=== PATIENT | female | born 1990 | race Caucasian/White ===

== ENCOUNTER 2018-01-16 04:15 | Emergency (ER) | payer MEDICAID ==
[2018-01-16] MEDS ORDERED: NS 1,000 ML IV ONE (04:26)
[2018-01-16] MEDS ORDERED: KETOROLAC 30 MG/1 ML SDV IVP ONE (04:26)
[2018-01-16] MEDS ORDERED: DEXAMETHASONE 10 MG/ML VIAL IVP ONE (04:26)
[2018-01-16] MEDS ORDERED: METOCLOPRAMIDE 10 MG/2 ML VIAL IVP ONE (04:26)
--- NOTE | 2018-01-16 04:29 | EDPHY ---
H & P Stated Complaint: migraine headache since 4 p.m. yeaterday, increased pain @ 1 am Time Seen by Provider: 01/16/18 04:26 HPI/ROS: HPI CHIEF COMPLAINT: "I am having a migraine" HISTORY OF PRESENT ILLNESS: 27-year-old female, suffers from migraine headaches , presents emergency room stating that she is having a migraine. She typically would take migraine medication however she does not have a primary care doctor and does not have any current migraine medications. She states her headache is bifrontal and is very similar to her previous migraine headaches. Describes a throbbing sensation. She also gets ocular migraines. She denies any ocular complaints at this time. Denies chest pain shortness of breath. Denies fever. Denies neck stiffness. Headaches been going on since 4:00 p.m. Yesterday. Gradual onset. Not thunderclap. Not sudden onset. Past Medical History: Migraine headache Past Surgical History: Gallbladder removal Social History: Denies daily use drugs alcohol tobacco. Family History: Noncontributory ROS REVIEW OF SYSTEMS: 10 Systems were reviewed and negative with the exception of the elements mentioned in the history of present illness. Exam Constitutional nontoxic no acute distress triage nursing summary reviewed, vital signs reviewed, awake/alert. Eyes normal conjunctivae and sclera, EOMI, PERRLA. HENT normal inspection, atraumatic, moist mucus membranes, no epistaxis, neck supple/ no meningismus, no raccoon eyes. Respiratory clear to auscultation bilaterally, normal breath sounds, no respiratory distress, no wheezing. Cardiovascular rate normal, regular rhythm, no murmur, no edema, distal pulses normal. Gastrointestinal soft, non-tender, no rebound, no guarding, normal bowel sounds, no distension, no pulsatile mass. Genitourinary no CVA tenderness. Musculoskeletal no midline vertebral tenderness, full range of motion, no calf swelling, no tenderness of extremities, no meningismus, good pulses, neurovascularly intact. Skin pink, warm, & dry, no rash, skin atraumatic. Neurologic normal neurological exam awake, alert and oriented x 3, AAOx3, moves all 4 extremities equally, motor intact, sensory intact, CN II-XII intact , normal cerebellar, normal vision, normal speech. Psychiatric normal mood/affect. Heme/Lymph/Immune no lymphadenopathy. Differential Diagnosis: Includes but is not limited to in a particular order migraine headache, tension headache, cluster headache, intracranial bleed, meningitis Medical Decision Making: Plan for this patient her neurological exam here is unremarkable. She describes her headache is similar to her previous migraine headaches. She did take ibuprofen prior to arrival and earlier in the day without much relief. Her headache she reports is very similar to previous headaches. Re-evaluation: Plan for patient migraine cocktail IV, basic blood work, IV fluids and monitoring. Re-evaluation. 0607: Patient re-evaluated this time resting comfortably neurological exam is unremarkable. Patient feels much better. Headache is resolved. Recommend follow up with primary care doctor. Fioricet prescription provided. Return precautions discussed. Source: Patient - Personal History Current Tetanus/Diphtheria Vaccine: Unsure Current Tetanus Diphtheria and Acellular Pertussis (TDAP): Unsure - Medical/Surgical History Hx Asthma: Yes Hx Chronic Respiratory Disease: No Hx Diabetes: No Hx Cardiac Disease: No Hx Renal Disease: No Hx Cirrhosis: No Hx Alcoholism: No Hx HIV/AIDS: No Hx Splenectomy or Spleen Trauma: No Other PMH: migraines, depression, choli, DDD,. asthma as a child - Social History Smoking Status: Never smoked Constitutional: Initial Vital Signs Temperature (C) 36.6 C 01/16/18 04:15 Heart Rate 90 01/16/18 04:15 Respiratory Rate 18 01/16/18 04:15 Blood Pressure 142/82 H 01/16/18 04:15 O2 Sat (%) 99 01/16/18 04:15 O2 Delivery Mode Room Air Allergies/Adverse Reactions: No Known Allergies Allergy (Unverified 01/16/18 06:04) Home Medications: Medication Instructions Recorded Acet/Caffeine/Buta Fioricet 1 each PO Q6 #20 tab 01/16/18 [Fioricet] Medical Decision Making - Data Points Laboratory Results: Laboratory Results 01/16/18 04:45 01/16/18 04:45 01/16/18 01/16/18 04:45 04:45 WBC 11.57 10^3/uL H 10^3/uL (3.80-9.50) RBC 4.11 10^6/uL L 10^6/uL (4.18-5.33) Hgb 12.3 g/dL L g/dL (12.6-16.3) Hct 36.4 % L % (38.0-47.0) MCV 88.6 fL fL (81.5-99.8) MCH 29.9 pg pg (27.9-34.1) MCHC 33.8 g/dL g/dL (32.4-36.7) RDW 12.7 % % (11.5-15.2) Plt Count 245 10^3/uL 10^3/uL (150-400) MPV 10.6 fL fL (8.7-11.7) Neut % (Auto) 56.5 % % (39.3-74.2) Lymph % (Auto) 36.0 % % (15.0-45.0) Creek % (Auto) 5.7 % % (4.5-13.0) Eos % (Auto) 1.0 % % (0.6-7.6) Baso % (Auto) 0.6 % % (0.3-1.7) Nucleat RBC Rel Count 0.0 % % (0.0-0.2) Absolute Neuts (auto) 6.55 10^3/uL H 10^3/uL (1.70-6.50) Absolute Lymphs (auto) 4.16 10^3/uL H 10^3/uL (1.00-3.00) Absolute Monos (auto) 0.66 10^3/uL 10^3/uL (0.30-0.80) Absolute Eos (auto) 0.11 10^3/uL 10^3/uL (0.03-0.40) Absolute Basos (auto) 0.07 10^3/uL 10^3/uL (0.02-0.10) Absolute Nucleated RBC 0.00 10^3/uL 10^3/uL (0-0.01) Immature Gran % 0.2 % % (0.0-1.1) Immature Gran # 0.02 10^3/uL 10^3/uL (0.00-0.10) Sodium 139 mEq/L mEq/L (135-145) Potassium 4.2 mEq/L mEq/L (3.3-5.0) Chloride 107 mEq/L mEq/L (97-110) Carbon Dioxide 22 mEq/l mEq/l (22-31) Anion Gap 10 mEq/L mEq/L (6-14) BUN 16 mg/dL mg/dL (7-23) Creatinine 0.7 mg/dL mg/dL (0.6-1.0) Estimated GFR > 60 Glucose 83 mg/dL mg/dL (70-100) Calcium 9.3 mg/dL mg/dL (8.5-10.4) Medications Given: Discontinued Medications Dexamethasone (Decadron Injection) 10 mg IVP EDNOW ONE Stop: 01/16/18 05:01 Last Admin: 01/16/18 04:49 Dose: 10 mg Diphenhydramine HCl (Benadryl Injection) 25 mg IVP EDNOW ONE Stop: 01/16/18 04:27 Last Admin: 01/16/18 04:43 Dose: 25 mg Sodium Chloride (Ns) 1,000 mls @ 0 mls/hr IV ONCE ONE; Wide Open PRN Reason: Protocol Stop: 01/16/18 04:27 Last Admin: 01/16/18 04:45 Dose: 1,000 mls Ketorolac Tromethamine (Toradol) 30 mg IVP EDNOW ONE Stop: 01/16/18 04:27 Last Admin: 01/16/18 04:42 Dose: 30 mg Metoclopramide HCl (Reglan Injection) 10 mg IVP EDNOW ONE Stop: 01/16/18 04:27 Last Admin: 01/16/18 04:44 Dose: 10 mg Departure - Departure Disposition: Home, Routine, Self-Care Clinical Impression: Migraine headache Qualifiers: Migraine type: other Status migrainosus presence: without status migrainosus Intractability: not intractable Qualified Code(s): G43.809 - Other migraine, not intractable, without status migrainosus Condition: Good Instructions: Migraine Headache (ED) Additional Instructions: 1. Rest. 2. Stay well-hydrated. 3. Return to the emergency room if worsening symptoms Referrals: JUAN CARLOS LINDA [Other] - As per Instructions Prescriptions: Acet/Caffeine/Buta Fioricet [Fioricet] 1 each PO Q6 #20 tab
[2018-01-16] MEDS ORDERED: DEXAMETHASONE 4 MG/ML VIAL IVP ONE (05:00)
[2018-01-16 05:07] LABS: PLATELET COUNT 245 10^3/uL (150-400)
[2018-01-16 06:10] VITALS: BP 123/76
== END 2018-01-16 06:10 | disposition home or self-care (01) ==
DX: G43.809 Other migraine, not intractable, without status migrainosus (principal); Z90.49 Acquired absence of other specified parts of digestive tract; E86.9 Volume depletion, unspecified
CPT/HCPCS: 96374; J1100; J1200; J1885; J2765